=== PATIENT | female | born 1965 | race Caucasian/White ===

== ENCOUNTER 2025-07-09 17:12 | Emergency (ER) | payer BC ==
[~2025-07-09] VITALS: Ht 157.5 cm; Wt 82.0 kg
[2025-07-09 17:14] VITALS: O2SAT 98
[2025-07-09 17:20] VITALS: TEMP 36.8; O2SAT 96
[2025-07-09 18:05] LABS: BASOPHILS % 1.1 % (0.0-2.0); EOSINOPHILS % 1.9 % (0.0-5.0); HEMATOCRIT. 40.0 % (36.0-48.0); HEMOGLOBIN. 13.3 g/dL (12.0-16.0); LYMPHOCYTES % 22.7 % (20.0-50.0); MEAN PLATELET VOLUME 7.5 fl (7.4-10.4); MONOCYTES % 5.0 % (2.0-8.0); NEUTROPHILS % 69.3 % (40.0-76.0); PLATELET 268 x1000/uL (130-400); RED BLOOD CELL COUNT 4.82 mill/uL (4.2-5.4); RED CELL DISTRIBUTION WIDTH 14.6 % (11.6-14.6)
[2025-07-09 18:23] LABS: CREATININE 0.7 mg/dL (0.6-1.0); UREA NITROGEN BLOOD 12 mg/dL (9-23)
[2025-07-09 19:52] LABS: CLARITY URINE CLEAR (CLEAR); COLOR URINE YELLOW (YELLOW); SPECIFIC GRAVITY URINE 1.005 (1.005-1.030)
[2025-07-09 19:53] LABS: GLUCOSE URINE NEGATIVE (NEGATIVE); KETONES URINE NEGATIVE (NEGATIVE); NITRITE URINE NEGATIVE (NEGATIVE); OCCULT BLOOD URINE NEGATIVE (NEGATIVE); PH URINE 7.0 (4.5-8.0); PROTEIN URINE NEGATIVE (NEGATIVE); UROBILINOGEN URINE 0.2 E.U./dL (0.2-1.0)
[2025-07-09 19:54] LABS: LEUKOCYTE ESTERASE URINE 1+ (NEGATIVE)
[2025-07-09 20:49] LABS: BACTERIA URINE TRACE; RBC URINE 0-2 /hpf (0-2); SQUAMOUS EPITHELIAL CELL URINE FEW /lpf (RARE/1+)
[2025-07-09 21:26] LABS: ASPARTATE AMINOTRANSFERASE 25 IU/L (<34); BILIRUBIN DIRECT < 0.1 mg/dL (<=3.0)
[2025-07-09 21:27] LABS: BILIRUBIN TOTAL 0.3 mg/dL (0.1-1.0); PROTEIN TOTAL 7.6 g/dL (6.0-8.3)
[2025-07-09 21:39] VITALS: BP 154/101; PULSE 98; RESP 16
[2025-07-09] MEDS: METOCLOPRAMIDE HCL 10MG TABLET PO ONE (21:39)
[2025-07-09] MEDS: KETOROLAC 15MG/ML VIAL IM ONE (21:39)
[2025-07-09] MEDS: DIPHENHYDRAMINE 25MG CAPSULE PO ONE (21:39)
== END 2025-07-09 22:08 | disposition home or self-care (01) ==
LOC: ER 17:12
DX: G43.909 Migraine, unspecified, not intractable, without status migrainosus (principal); E11.9 Type 2 diabetes mellitus without complications; K21.9 Gastro-esophageal reflux disease without esophagitis; E78.00 Pure hypercholesterolemia, unspecified
CPT/HCPCS: 99283; 80076; 80048; 81003; 83690; 85025; 36415; 96372; J1885; Q0163; J8597